=== PATIENT | female | born 1980 | race Caucasian/White ===

== ENCOUNTER → 2017-12-02 | Day surgery (SDC) | payer MEDICAID ==
[~2017-12-02] VITALS: Ht 149.9 cm; Wt 81.6 kg
[~2017-12-02] MED LIST: GLYCOPYRROLATE 0.2 MG/ML 1ML VIAL ONE; HYDROmorphone HCL 2 MG/ML VL IV PRN; KETOROLAC TROMETH 30 MG/ML 1ML VIAL IV ONE; KETOROLAC TROMETH 60MG/2ML VIAL IM ONE; MEPERIDINE HCL (50 MG/ML) 1 ML VIAL ONE; METOCLOPRAMIDE HCL 5MG/ml INJ 2ml VIAL IV ONE; MIDAZOLAM HCL 1MG/1ML-2 ML VIAL ONE; NEOSTIGMINE 1 MG/ML INJ (10mg/10ML VIAL) ONE; ONDANSETRON HCL 4 MG/2 ML VIAL ONE; PROPOFOL 10 MG/ML 20 ML IV ONE; ROCURONIUM 10MG/ML 10ML VIAL IV ONE; SODIUM CHLORIDE LOCK 20 ML ONE; SUCCINYLCHOLINE CHLORIDE 20 MG/ML 10ML VIAL IV ONE; fentaNYL CITRATE 100 MCG/2 ML VL ONE
[2017-12-02 11:32] VITALS: BP 118/72
== END | disposition home or self-care (01) ==
LOC: SUR 08:19
PROVIDERS: ATTEND Obstetrics & Gynecology Gynecologic Oncology
DX: N92.0 Excessive and frequent menstruation with regular cycle (principal); Z30.432 Encounter for removal of intrauterine contraceptive device; D25.9 Leiomyoma of uterus, unspecified; N83.209 Unspecified ovarian cyst, unspecified side; G43.909 Migraine, unspecified, not intractable, without status migrainosus
CPT/HCPCS: 49322; 58562; J2175; J3010; 74018; J0330; J1885; J2250; J2405; J2704